=== PATIENT | female | born 1995 | race Caucasian/White ===

== ENCOUNTER 2016-12-20 18:00 | Emergency (ER) | payer MEDICAID, OTHER ==
[~2016-12-20 18:00] MED LIST: Z.0.NO CURRENT MEDS
[2016-12-20 18:34] VITALS: BP 129/76; PULSE 83
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
[2016-12-20 19:42] LABS: HEMATOCRIT 29.9 % (35.0-46.0); MEAN CELL VOLUME 86.2 FL (80.0-100.0); MEAN CORPUSCULAR HGB CONC 33.6 % (32.0-36.0); PLATELET COUNT 172 TH/MM3 (150-450); RED BLOOD COUNT 3.46 MIL/MM3 (4.00-5.30); RED CELL DISTRIBUTION WIDTH 15.3 % (11.6-17.2); REVIEW FLAG FINAL; WHITE BLOOD COUNT 10.5 TH/MM3 (4.0-11.0)
[2016-12-20 19:47] LABS: BACTERIA, URINE OCC /hpf; BLOOD, URINE NEG (NEG); COMMENT (UR) CULT NOT INDICATED; CULTURE IF INDICATED CULT NOT INDICATED; GLUCOSE,URINE NEG (NEG); KETONE, URINE NEG (NEG); NITRITE,URINE NEG (NEG); PH, URINE 5.5 (5.0-8.5); SQUAMOUS EPITHELIAL CELL URINE 4 /hpf (0-5); URINE COLOR YELLOW (YELLW/STRAW)
[2016-12-20 19:59] LABS: ANION GAP 13 MEQ/L (5-15); AST (GOT) 16 U/L (16-38); BICARBONATE 19.5 MEQ/L (21.0-32.0); BLOOD UREA NITROGEN 11 MG/DL (7-18); CHLORIDE 104 MEQ/L (98-107); GLOMERULAR FILTRATION RATE 169 ML/MIN (>89); POTASSIUM 3.9 MEQ/L (3.5-5.1); SODIUM (NA) 136 MEQ/L (136-145); URIC ACID 6.2 MG/DL (2.6-6.0)
[2016-12-20 20:03] LABS: ALKALINE PHOSPHATASE 87 U/L (45-117); ALT (GPT) 20 U/L (9-42); TOTAL BILIRUBIN ADULT 0.4 MG/DL (0.2-1.0)
[2016-12-20] MEDS ORDERED: MACR100C2 PO (20:17)
== END 2016-12-20 20:36 | disposition home or self-care (01) ==
LOC: HOBED 18:00
DX: N39.0 Urinary tract infection, site not specified (principal); O23.43 Unspecified infection of urinary tract in pregnancy, third trimester; Z3A.35 35 weeks gestation of pregnancy
CPT/HCPCS: 80053; 81001; 82570; 84156; 84550; 85027; 99284